=== PATIENT | female | born 1975 | race Caucasian/White ===

== ENCOUNTER 2023-07-08 08:58 | Outpatient (CLI) | payer OTHER, SELFPAY ==
--- NOTE | 2023-07-08 09:24 | MM_ITS ---
WS: [id number] DIAGNOSTIC BILATERAL DIGITAL BREAST TOMOSYNTHESIS MAMMOGRAPHY WITH CAD RIGHT breast ultrasound, limited. HISTORY: RT BR PAIN COMPARISON: None available. TECHNIQUE: Bilateral craniocaudad, mediolateral oblique, and mediolateral views are submitted with to mosynthesis and SM. Spot compression CC. Computer aided detection utilized. Breast composition: There are scattered areas of fibroglandular density. No masses or distortion iden tified. No calcifications. Symmetric appearance to each breast. RIGHT breast ultrasound, limited. Ultrasound is performed in the areolar location of the RIGHT breast. No mass or cyst identified. No d istortion IMPRESSION: MM/[place] [id number] BI-RADS: 2-Benign FOLLOW UP: 1 Year Follow-up
== END 2023-07-08 08:59 | disposition home or self-care (01) ==
LOC: RAD 09:01
PROVIDERS: PCP Obstetrics & Gynecology; Visit Provider Obstetrics & Gynecology
DX: N64.9 Disorder of breast, unspecified (principal); N64.4 Mastodynia
CPT/HCPCS: 76642; 77062; G0279

== ENCOUNTER → 2025-06-09 16:08 | Outpatient (BNVA) | payer OTHER, SELFPAY | PROVIDERS: PCP Obstetrics & Gynecology; Referring Provider Family Medicine; Visit Provider Obstetrics & Gynecology | DX: N93.9 Abnormal uterine and vaginal bleeding, unspecified (principal) | CPT/HCPCS: 85025 ==

== ENCOUNTER 2025-08-03 08:12 | Day surgery (SDC) | payer OTHER, SELFPAY ==
[2025-08-03] VITALS (10 sets, daily range): BP systolic 106–138; BP diastolic 50–81; PULSE 65–81; RESP 16–19; TEMP 36.2–36.8; O2SAT 96–100; BMI 39.4
--- NOTE | 2025-08-03 01:11 | W.PM.OPSFHP ---
Same Day Surgery H&P Indication for Procedure/HPI DATE OF PROCEDURE: August 03, 2025 CHIEF COMPLAINT/INDICATIONFOR SURGICAL PROCEDURE: abnormal uterine bleeding PREOP DIAGNOSIS: abnormal uterine bleeding PLANNED PROCEDURE: Operation Date: 08/03/25 09:55 Proposed Procedures p Hysteroscopy w/ Endometrial Sampling [id number] N93.9(Not Applicable) - Mariusz Alston MD s POSSIBLE Poylpectomy(Not Applicable) - Mariusz Alston MD Medications/Allergies* Home Medications ?Medication ?Instructions ?Recorded ?Confirmed ?Type albuterol sulfate 90 mcg/actuation 2 puff inhalation Q6H PRN Pain 06/09/25 08/02/25 History aerosol inhaler (Ventolin HFA) ferrous sulfate 27 mg iron tablet 27 mg PO DAILY 06/09/25 08/02/25 History ibuprofen 800 mg tablet 800 mg PO TID 06/09/25 08/02/25 History Allergies/Adverse Reactions Allergy/AdvReac Type Severity Reaction Status Date / Time No Known Drug Allergies Allergy Unknown Verified 08/02/25 10:55 Pertinent History/Comorbid Conditions* Social History Smoking and tobacco/nicotine status: former use of tobacco/nicotine (Quit in 2011) Pertinent Exam Findings alert, oriented x 3, clear to auscultation bilaterally and regular rate & rhythm Recommendations Surgery/Procedure today Coding Level of Care Code Acute Code for Chg Fwd
[2025-08-03 08:44] LABS: OR HCG Qualitative Urine Negative (Negative)
--- NOTE | 2025-08-03 10:30 | ANES.PREANE2 ---
Pre-Anesthetic Assessment Height/Weight: Height 1.5 m Weight 88.451 kg Temp Pulse Resp BP Pulse Ox O2 Del Method 97.8 F 80 18 138/67 97 Room Air 08/03/25 08:40 08/03/25 08:40 08/03/25 08:40 08/03/25 08:40 08/03/25 08:40 08/03/25 08:40 Preop Diagnosis: abnormal uterine bleeding Operation Date: 08/03/25 09:55 Proposed Procedures p Hysteroscopy w/ Endometrial Sampling [id number] N93.9(Not Applicable) - Mariusz Alston MD s POSSIBLE Poylpectomy(Not Applicable) - Mariusz Alston MD Familial anesthetic complications: None Was Beta Kenisha taken within 24 hours: N/A Was Clonidine taken within 24 hours: N/A Last intake: Intake Last Liquid Date 08/02/25 Last Liquid Time 22:00 Last Solid Date 08/02/25 Last Solid Time 20:00 Social No alcohol and No tobacco Exam alert, oriented x 3, clear to auscultation bilaterally and regular rate & rhythm Airway Mallampati: Class IV Dentition: chipped and caps Comments: Comments: large tonsils Metabolic Morbid Obesity Anesthetic Plan ASA status: 2 Anesthesia: General Risk of > 500 ml blood loss (7ml/kg in children): No Medications/Allergies Home Medications ?Medication ?Instructions ?Recorded ?Confirmed ?Last Taken ?Type albuterol sulfate 90 mcg/actuation 2 puff inhalation Q6H PRN Pain 06/09/25 08/03/25 Unknown History aerosol inhaler (Ventolin HFA) ferrous sulfate 27 mg iron tablet 27 mg PO DAILY 06/09/25 08/03/25 08/02/25 History ibuprofen 800 mg tablet 800 mg PO TID 06/09/25 08/03/25 Unknown History Allergies Allergy/AdvReac Type Severity Reaction Status Date / Time No Known Drug Allergies Allergy Unknown Verified 08/02/25 10:55 Current Medications Generic Name Dose Route Start Last Admin Trade Name Freq PRN Reason Stop Dose Admin Sodium Chloride 1,000 mls @ 30 mls/hr 08/03/25 08:30 08/03/25 09:14 Sodium Chloride 0.9% IV 08/04/25 08:29 30 mls/hr .Q24H MINNA Administration PFSH Anesthesia Social History Smoking and tobacco/nicotine status: former use of tobacco/nicotine (Quit in 2011) Female Reproductive History Date of last menstrual period: 07/15/25
--- NOTE | 2025-08-03 11:14 | W.PM.OPSUD ---
Surgery/Procedure H&P Update DATE OF PROCEDURE: August 03, 2025 DATE H&P PERFORMED: 08/03/25 H&P UPDATE INFORMATION: I have reviewed H&P completed within last 30 days, I have examined patient prior to procedure and No changes to prior documentation CHANGES TO PREVIOUS DOCUMENTATION: also removal of intrauterine device PREOP DIAGNOSIS: abnormal uterine bleeding PLANNED PROCEDURE: Operation Date: 08/03/25 09:55 Proposed Procedures p Hysteroscopy w/ Endometrial Sampling [id number] N93.9(Not Applicable) - Mariusz Alston MD s POSSIBLE Poylpectomy(Not Applicable) - Mariusz Alston MD
[2025-08-03] MEDS: ondansetron 2 mg/ML SDV 2 mL 4 MG IVP ×2 (12:30→12:35)
[2025-08-03] MEDS: metoclopramide 5 mg/mL SDV 2 mL 10 MG IVP (12:46)
--- NOTE | 2025-08-03 12:50 | PM.OP ---
Operative Report Date of procedure: August 03, 2025 Pre-op diagnosis: abnormal uterine bleeding Post-op diagnosis: same Post-op findings: No intrauterine device seen normal endometrial cavity No polyps / fibroids minimal amount of endometrial tissue Procedure done: hysteroscopy Curettage of uterus Implants: none Specimens removed/disposition: endometrial tissue Surgeon: Mariusz Alston MD Anesthesia: MAC Estimated blood loss (mL): 0 Complications: none Findings: see above Condition: stable Disposition: PACU Brief History: 50 y.o. with abnormal uterine bleeding Procedure: Patient was taken to the operating room. Anesthesia was induced. Patient was placed in dorsolithotomy position, prepped and draped for hysteroscopy. A bivalve speculum was placed in the vagina. The anterior lip of the cervix was grasped with a sharp-toothed tenaculum. No IUD string was seen. The cervix was serially dilated with Hegar dilators. . A hysteroscope was placed into the endometrial cavity. No IUD was seen in the endometrial cavity. The endometrial cavity was seen to be normal. There were no polyps or fibroids. There was a minimal amount of endometrial tissue. The hysteroscope was then removed. Endometrial curettage was done with a sharp curette. Endometrial tissue was sent to pathology. The sharp-toothed tenaculum was removed. There was no bleeding from the endometrial cavity or cervix. The patient was then placed supine and awakened and taken to the PACU. Postop condition: stable EBL: none Sponge and instruments counts were normal x 2 Complications: none
--- NOTE | 2025-08-03 13:40 | ANE.PACU2 ---
Inpatient post-anesthesia follow up: Airway intact: Yes Vital signs: Temperature 98.2 F Pulse Rate 79 Respiratory Rate 17 Blood Pressure 106/81 Pulse Oximetry 96 Oxygen Delivery Me thod Room Air Oxygen Flow Rate Fraction of Inspir ed Oxygen Hydration adequate: Yes Nausea and vomiting: No Pain level: 1 Mental status: Baseline
== END 2025-08-03 13:40 | disposition home or self-care (01) ==
PROVIDERS: Anesthesiology; PCP Family Medicine; Visit Provider Obstetrics & Gynecology
PROC: 0UJD8ZZ Inspection of Uterus and Cervix, Via Natural or Artificial Opening Endoscopic (ICD-10-PCS; CPT 58555; principal; 2025-08-03 09:45)
PROC: (CPT 58558; 2025-08-03 09:45)
DX: N93.9 Abnormal uterine and vaginal bleeding, unspecified (principal); Z87.891 Personal history of nicotine dependence; E66.01 Morbid (severe) obesity due to excess calories; Z68.39 Body mass index [BMI] 39.0-39.9, adult
CPT/HCPCS: 58558; 81025; 88305; J1100; J2250; J2405; J2704; J2765; J3010; J7030; J9999

== ENCOUNTER 2025-08-23 10:31 | Outpatient (CLI) | payer OTHER, SELFPAY ==
--- NOTE | 2025-08-23 10:39 | XR_ITS ---
WS: [id number] KUB, AP view, 08/23/2025 Clinical Data: T83.32XA - Displacement of intrauterine contraceptive dev... Comparison: None. Findings: No abnormal intraabdominal masses or calcifications are seen. There is no dilatated small bowel or evidence of obstruction. No evidence of radiopaque intrauterine device. XR/XR KUB [id number] Impression: Negative KUB.
== END 2025-08-23 10:32 | disposition home or self-care (01) ==
LOC: RAD 10:36
PROVIDERS: PCP Obstetrics & Gynecology; Visit Provider Obstetrics & Gynecology
DX: T83.32XA Displacement of intrauterine contraceptive device, initial encounter (principal); X58.XXXA Exposure to other specified factors, initial encounter
CPT/HCPCS: 74018